=== PATIENT | female | born 1995 | race Caucasian/White ===

== ENCOUNTER 2017-02-07 06:00 | Emergency (ER) | payer OTHER ==
[2017-02-07 06:08] VITALS: BP 120/74
[2017-02-07 06:19] LABS: BILIRUBIN,URINE NEGATIVE (NEGATIVE)
--- NOTE | 2017-02-07 06:30 | ED Physician Documentation ---
PD HPI FEMALE - Stated complaint Stated Complaint: FEMALE - Chief complaint Chief Complaint: Abd Pain - History obtained from History obtained from: Patient, Friend - History of Present Illness Timing - onset: Yesterday Timing - details: Gradual onset, Still present Associated symptoms: Pelvic pain, Dysuria, Urinary frequency. No: Fever Similar symptoms before: Work up / diagnostics, Treatment Recently seen: Not recently seen - Additional information Additional information: Patient is a 22 year old female with no significant past medical history who is presenting to the emergency department for dysuria and increased urinary frequency. Patient denies any nausea, vomiting, fever or chills Review of Systems Constitutional: denies: Fever, Chills Eyes: reports: Reviewed and negative Ears: reports: Reviewed and negative Nose: reports: Reviewed and negative Throat: reports: Reviewed and negative Cardiac: reports: Reviewed and negative Respiratory: reports: Reviewed and negative GI: reports: Abdominal Pain, Nausea. denies: Vomiting, Constipation, Diarrhea : reports: Dysuria, Frequency, Hematuria. denies: Discharge, Vaginal bleeding Skin: denies: Rash, Lesions Neurologic: reports: Reviewed and negative Psychiatric: reports: Reviewed and negative Immunocompromised: denies: Immunocompromised PD PAST MEDICAL HISTORY - Past Medical History Past Medical History: Yes : Other Other Past Medical History: UTI - Past Surgical History Past Surgical History: No - Present Medications Home Medications: Ambulatory Orders Medication Instructions Recorded Confirmed Fluconazole [Diflucan] 100 mg PO DAILY #1 tablet 02/07/17 Ondansetron Odt [Zofran] 4 mg TL Q6H PRN #14 tablet 02/07/17 Phenazopyridine HCl [Pyridium] 200 mg PO TID PRN #6 tablet 02/07/17 Sulfamethox/Trimeth 800/160 1 each PO BID #10 tablet 02/07/17 [Bactrim Ds 800/160] - Allergies Allergies/Adverse Reactions: Allergies Allergy/AdvReac Type Severity Reaction Status Date / Time No Known Drug Allergies Allergy Verified 02/07/17 06:05 - Social History Does the pt smoke?: No Smoking Status: Never smoker Does the pt drink ETOH?: No Does the pt have substance abuse?: No - Immunizations Immunizations are current?: Yes - POLST Patient has POLST: No PD ED PE NORMAL - Vitals Vital signs reviewed: Yes - General General: Alert and oriented X 3, Well developed/nourished - HEENT HEENT: Atraumatic, PERRL - Neck Neck: Supple, no meningeal sign - Cardiac Cardiac: RRR - Respiratory Respiratory: No respiratory distress - Abdomen Abdomen: Non distended - Female Female : Pt declined - Derm Derm: Normal color, Warm and dry, No rash - Extremities Extremities: No deformity, No edema - Neuro Neuro: Alert and oriented X 3, No motor deficit, No sensory deficit, Normal speech Results - Vitals Vitals: Vital Signs - 24 hr 02/07/17 06:06 Temperature 36.4 C L Heart Rate 74 Respiratory 16 Rate Blood Pressure 120/74 O2 Saturation 100 Oxygen O2 Source Room air - Labs Labs: Laboratory Tests 02/07/17 02/07/17 06:12 06:13 Urine Color ORANGE Urine Clarity CLEAR Urine pH 6.0 Ur Specific [place] <=1.005 <=1.005 Urine Protein TRACE Urine Glucose (UA) NEGATIVE Urine Ketones NEGATIVE Urine Occult Blood Urine Nitrite Urine Bilirubin NEGATIVE Urine Urobilinogen 0.2 (NORMAL) Ur Leukocyte Esterase MODERATE H Urine RBC 0-5 Urine WBC 11-25 H Ur Squamous Epith Cells NONE SEEN Urine Bacteria None Seen Ur Microscopic Review INDICATED Urine Culture Comments INDICATED Urine HCG, Qual NEGATIVE PD MEDICAL DECISION MAKING - ED course Complexity details: reviewed old records, reviewed results, re-evaluated patient , considered differential, d/w patient, d/w family ED course: Patient was seen and examined at bedside. Urine was collected and sent. diagnostically and clinically patient had a urinary tract infection but no signs of pyelonephritis. Patient was treated with bactrim, pyridium and zofran. Prescriptions were written. Patient required no further work up and was stable for discharge with outpatient follow up. Departure - Departure Disposition: 01 Home, Self Care Clinical Impression: Urinary tract infection Condition: Good Instructions: ED UTI Cystitis Female Follow-Up: primary,care provider [Other] - Within 3 Days (if symptoms dont improve) Prescriptions: Fluconazole [Diflucan] 100 mg PO DAILY #1 tablet Ondansetron Odt [Zofran] 4 mg TL Q6H PRN #14 tablet PRN Reason: Nausea / Vomiting Phenazopyridine HCl [Pyridium] 200 mg PO TID PRN #6 tablet PRN Reason: dysuria Sulfamethox/Trimeth 800/160 [Bactrim Ds 800/160] 1 each PO BID #10 tablet Comments: Your symptoms are being caused by a urinary tract infection. You had your first dose of antibiotics today and will need to be on them the next five days. You should make sure you stay well hydrated and take motrin, tylenol and pyridium for pain. You should follow up with your pmd if your symptoms persist for more than the next few days. You will be called if your bacteria is no susceptible to the antibiotic given. You may return to the emergency department at any time for new, worsening or uncontrollable symptoms. Forms: Activity restrictions
[2017-02-07 06:31] LABS: UA w/ MICROSCOPIC CHARGE YES
[2017-02-07 06:31] LABS: HCG UR QUAL NEGATIVE
[2017-02-07 06:37] LABS: UR CULTURE IF IND INDICATED
[2017-02-07] MEDS ORDERED: ONDANSETRON ODT 4 MG TABLET TL STA (06:38)
[2017-02-07] MEDS ORDERED: SULFAMETH/TRIMETH DS 800/160 MG TABLET PO STA (06:38)
[2017-02-07] MEDS ORDERED: PHENAZOPYRIDINE 100 MG TABLET PO STA (06:38)
[2017-02-07] MEDS ORDERED: SULFAMETH/TRIMETH DS 800/160 MG TABLET PO ONE (06:46)
[2017-02-07] MEDS ORDERED: PHENAZOPYRIDINE 100 MG TABLET PO ONE (06:47)
[2017-02-07] MEDS ORDERED: ONDANSETRON ODT 4 MG TABLET ONE (06:47)
== END 2017-02-07 06:52 | disposition home or self-care (01) ==
LOC: ED 06:00
DX: N39.0 Urinary tract infection, site not specified (principal); Z87.440 Personal history of urinary (tract) infections
CPT/HCPCS: 81001; 81025; 87086; 87181; 99283; 99284; A9270; Q0162; 81003

== ENCOUNTER 2019-03-06 09:00 | Outpatient (CLI) | payer OTHER | END 2019-03-06 23:59 | disposition home or self-care (01) | LOC: LAB.R 09:00 | PROVIDERS: ATTEND Nurse Practitioner Obstetrics & Gynecology | DX: O60.00 Preterm labor without delivery, unspecified trimester (principal); Z3A.00 Weeks of gestation of pregnancy not specified | CPT/HCPCS: 82731 ==

== ENCOUNTER 2019-03-18 11:34 | Outpatient (CLI) | payer OTHER ==
--- NOTE | 2019-03-19 00:45 | Ultrasound Report ---
Reason: LABOR WITHOUT DELIVERY Procedure Date: 03/18/2019 Accession Number: [id number] / [id number] Procedure: US - OB Limited CPT Code: Final Report FULL RESULT: EXAM: LIMITED OBSTETRICAL ULTRASOUND EXAM DATE: 03/18/2019 11:42 AM. CLINICAL HISTORY: LABOR WITHOUT DELIVERY. Transvaginal cervical length measurement. COMPARISON: None. TECHNIQUE: Real-time sonographic evaluation of the fetus performed by the prefabricator. Multiple front office representative static images were saved for review. Additional transvaginal imaging to more accurately evaluate cervical length. DATING: Established EGA 33 weeks 6 days with REINA 04/30/2019. GENERAL EVALUATION Amor . Cardiac activity: 152 bpm. Presentation: Cephalic. Placenta: Anterior position. Amniotic fluid: Normal. ROBINSON 15.1 cm. MVP 4.4 cm. ANATOMY Not assessed on limited exam. MATERNAL STRUCTURES Cervix is long and closed. Cervix measures 4.9 cm in length transvaginally. IMPRESSION: 1. Amor live intrauterine with gestational age 33 weeks 6 days based on established REINA. 2. Cervix is long and closed, measuring 4.9 cm. 3. Amniotic fluid index 15.1 cm, with MVP 4.4 cm. RADIA
== END 2019-03-18 11:35 | disposition home or self-care (01) ==
LOC: DI 11:34
PROVIDERS: ATTEND Nurse Practitioner Obstetrics & Gynecology
DX: O60.03 Preterm labor without delivery, third trimester (principal); Z3A.33 33 weeks gestation of pregnancy
CPT/HCPCS: 76815

== ENCOUNTER 2019-04-13 08:00 | Outpatient (CLI) | payer OTHER ==
[2019-04-13 22:32] LABS: TRICHOMONAS VAGINALIS DNA NEGATIVE (NEGATIVE)
== END 2019-04-13 23:59 | disposition home or self-care (01) ==
LOC: LAB.R 08:00
PROVIDERS: ATTEND Obstetrics & Gynecology
DX: Z36.85 Encounter for antenatal screening for Streptococcus B (principal)
CPT/HCPCS: 87491; 87591; 87661; 87797

== ENCOUNTER 2019-05-01 06:28 | Inpatient (IN) | payer OTHER ==
[2019-05-01] MEDS ORDERED: AMPICILLIN 2 GM in SODIUM CHLORIDE 0.9% MINIBAG 100 ML IV ONE (08:54)
[2019-05-01] MEDS ORDERED: ONDANSETRON 4 MG/2 ML VIAL IVP PRN (08:54)
[2019-05-01] MEDS ORDERED: SODIUM CHLORIDE FLUSH 0.9% 10 ML SYRINGE IVP PRN (08:54)
[2019-05-01] MEDS ORDERED: LACTATED RINGERS 1,000 ML IV SCH (09:00)
[2019-05-01] MEDS ORDERED: LIDOCAINE-MPF 1% 30 ML VIAL ONE (09:32)
[2019-05-01] MEDS ORDERED: OXYTOCIN/DEXTROSE 5 % 30 UNIT/500 ML BAG IV ONE (09:32)
[2019-05-01] MEDS ORDERED: miSOPROStoL 200 MCG TABLET ONE (09:32)
--- NOTE | 2019-05-01 09:43 | HISTORY & PHYSICAL EXAMINATION ---
Admit History - Visit Reason Visit Reason: Contractions - : 2 Parity: 1 Premature: 0 Ectopic: 0 : 0 Care: positive: [facility] Risk/History: positive: None Complications This : positive: None Smoking Status: Never smoker - Mother's Labs Mother's Blood Type: positive: O Mother's RH: positive: Positive GBS: positive: Group B Strep Positive Rubella Status: positive: Immune Meds/Allgy - Home Medications Home Medications: Ambulatory Orders Medication Instructions Recorded Confirmed Fluconazole [Diflucan] 100 mg PO DAILY #1 tablet 02/07/17 Ondansetron Odt [Zofran] 4 mg TL Q6H PRN #14 tablet 02/07/17 Phenazopyridine HCl [Pyridium] 200 mg PO TID PRN #6 tablet 02/07/17 Sulfamethox/Trimeth 800/160 1 each PO BID #10 tablet 02/07/17 [Bactrim Ds 800/160] - Allergies Allergies/Adverse Reactions: Allergies Allergy/AdvReac Type Severity Reaction Status Date / Time No Known Drug Allergies Allergy Verified 02/07/17 06:05 Review of Systems - Constitutional Constitutional: denies: Fatigue, Fever, Chills, Malaise - Eyes Eyes: denies: Blurred vision, Spots in vision, Dipolpia - Cardiovascular Cariovascular: denies: Irregular heart rate, Chest pain, Edema - Respiratory Respiratory: denies: SOB at rest - Gastrointestinal Gastrointestinal: denies: Change in bowel habits - Integumentary Integumentary: denies: Rash, Pruritis - Neurological Neurological: denies: Headache Physical - Abdominal Exam Vital Signs: Temp Pulse Resp BP Pulse Ox 36.5 C 78 20 113/59 L 100 05/01/19 06:50 05/01/19 06:50 05/01/19 06:50 05/01/19 06:50 05/01/19 06:50 Contraction Frequency (min/apart): 4-9 Contraction Intensity: positive: Moderate to strong Uterine Resting Tone: positive: Soft - Monitoring Heart Rate Baseline: 140 Strip Review: positive: Category I - Presentation Presentation: positive: Vertex - Vaginal Exam Membranes: positive: Membranes intact Dilation (in cm): 5 Effacement (%): 60 Station: positive: -3 Cervical Position: positive: Posterior - Speculum Exam Speculum Exam Performed: positive: No Plan for Labor - Plan For Labor I expect patient to be DC'd or transferred within 96 hours.: Yes Plan for Labor: HPI: Yousif is a 24yo @ 40.1wks gestation by LMP dating c/w initial ultrasound who presents to [facility] at approximately 0700 on 05/01/2019 with c/o contractions which have increased in intensity since 0400 this morning. She denies vaginal bleeding or leakage of fluid and reports +FM. She has been a patient of [facility] since 32wks gestation at which time she transferred care from [facility]. She had received regular care at [facility] previously and her has been complicated only by several weeks of prodromal labor in addition to her GBS positive status. She desires a minimally interventive labor and delivery and she was admitted to [facility] for expectant management. Dating criteria: REINA by LMP 04/27/2019 Initial ultrasound REINA 04/28/2019 Ovulation predictor dating REINA 04/30/2019 Serial exams -agree OB Hx: G1: 01/20/2018; 40wks gestation; ; unmedicated. Male; 6lbs 8oz G2: Current Medications: daily probiotic; PNV Allergies: Gluten (moderate) PMHx: unremarkable Surgical Hx: none Social Hx: Never smoker, no ETOH of IVDA. 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 FAS: 12/16/2018 WNL. Anterior placenta, no previa. 3VC. Size c/w dating Immunizations: TDAP 03/06/2019 Physical Exam: normocephalic, atraumatic Heart RRR w/o M/G/R Lungs CTAB Abdomen gravid, soft, nontender EFW 3000g SVE 5/60/-3, vertex, posterior, intact membranes Contractions palpate moderate to strong every 4-9 minutes with soft resting tone FHR baseline 140s, moderate variability, + accels, no decels Bilateral LE's no edema Mood is good Assessment: 24yo @ 40.1wks gestation by LMP c/w 11wk U/S Early labor GBS positive Plan: Admit for expectant management Initiate ampicillin per protocol for GBS prophylaxis Encouraged ambulation and position changes Caesar ARMSTRONG Anticipate
[2019-05-01 09:49] LABS: BASOPHILS # (AUTO) 0.1 10^3/uL (0.0-0.1); BASOPHILS % (AUTO) 0.5 %; EOSINOPHILS # (AUTO) 0.1 10^3/uL (0.0-0.7); EOSINOPHILS % (AUTO) 1.2 %; LYMPHOCYTES # (AUTO) 1.7 10^3/uL (1.5-3.5); LYMPHOCYTES % (AUTO) 15.8 %; MEAN CORPUSCULAR HEMOGLOBIN 32.4 pg (27.0-31.0); MEAN CORPUSCULAR HGB CONC 35.6 g/dL (32.0-36.0); MEAN CORPUSCULAR VOLUME 91.1 fL (81.0-99.0); MEAN PLATELET VOLUME 12.6 fL (7.9-10.8); MONOCYTES # (AUTO) 0.7 10^3/uL (0.0-1.0); MONOCYTES % (AUTO) 6.2 %; NEUTROPHILS # (AUTO) 8.2 10^3/uL (1.5-6.6); NEUTROPHILS % (AUTO) 75.4 %; PLT - PLATELET COUNT 133 10^3/uL (130-450); RED CELL DISTRIBUTION WIDTH 12.6 % (12.0-15.0); WHITE BLOOD COUNT 10.9 x10^3/uL (4.8-10.8)
--- NOTE | 2019-05-01 12:04 | PROVIDER PROGRESS NOTE ---
Labor Progress Note - Uterine Monitoring Uterine Monitoring Mode: positive: External toco Contraction Frequency (min/apart): 4-8 Contraction Intensity: positive: Moderate to strong Uterine Resting Tone: positive: Soft - Monitoring Monitor Mode: positive: Doppler/auscultation Heart Rate Baseline: 140 Heart Rate Variability: positive: Moderate (6-25 bmp) Accelerations: positive: Present, 15x15 Decelerations: positive: None Strip Review: positive: Category I - Labor Progress Note Labor Progress Note/Additional Text: S: Bouncing on the exercise ball at the bedside and breathing through contractio ns. She desires a minimally interventive labor and delivery and is appreciated of how things have gone thus far. She does feel things are very different this time than with her first, likely due to not receiving pitocin for induction. Wanting some reassurance about moving around vs laying down as she feels when she is laying down her contractions seems stronger than when she is up moving around and we reviewed this. Her is supportive at the bedside and initiating shoulder/back massage between contractions. O: SVE deferred at this time. Membranes intact. Contractions palpate moderate to strong every 4-6 minutes with soft resting tone. FHR baseline 140s, moderate variability, + accels, no decels A: 24yo @ 40.1wks gestation GBS positive - s/p loading dose of antibiotics per protocol Early labor P: Intermittent FHR auscultation Continue IV antibiotics for GBS prophylaxis per protocol Encouraged ambulation and position changes Caesar ARMSTRONG Defer SVE until pt requests or feeling urge to push Reviewed plan of care with pt, , and labor RN at the bedside who are all in agreement with plan and deny further questions or concerns at this time. Anticipate .
[2019-05-01] MEDS: AMPICILLIN 1 GM in SODIUM CHLORIDE 0.9% MINIBAG 100 ML IV SCH ×2 (14:00→18:08)
[2019-05-01] MEDS: SODIUM CHLORIDE FLUSH 0.9% 10 ML SYRINGE IVP SCH ×2 (14:06→18:09)
--- NOTE | 2019-05-01 16:14 | PROVIDER PROGRESS NOTE ---
Labor Progress Note - Uterine Monitoring Uterine Monitoring Mode: positive: Palpation Contraction Frequency (min/apart): 6-8 Contraction Intensity: positive: Moderate Uterine Resting Tone: positive: Soft - Monitoring Monitor Mode: positive: External ultrasound Heart Rate Baseline: 140 Heart Rate Variability: positive: Moderate (6-25 bmp) Accelerations: positive: Present, 10x10 (=/32 wks) Decelerations: positive: None Strip Review: positive: Category I - Vaginal Exam Dilation (in cm): 6 Effacement (%): 75 Station: -2 Cervical Position: Midposition - Labor Progress Note Labor Progress Note/Additional Text: S: Feeling slightly discouraged because she feels her contractions have d ecreased in both frequency and intensity at this point. She requests something to move the process forward. Her is supportive at the bedside. O: Contractions palpate moderate every 6-8 minutes with soft resting tone FHR baseline 140s with intermittent auscultation SVE 6/75/-2, vertex, mid-anterior position, soft AROM occurred at 1600 and was noted to be a moderate amount of clear fluid A: 24yo @ 40.1wks gestation Early labor GBS positive -receiving GBS prophylaxis per protocol P: Continue expectant management Intermittent heart rate auscultation Continue GBS prophylaxis per protocol Discussed nipple stimulation to augment Reviewed plan of care with pt, , and labor RN at the bedside who are all in agreement with above plan and deny further questions or concerns at this time. Anticipate .
[2019-05-01] MEDS ORDERED: BUFFERED LIDOCAINE 10 ML SYRINGE SUBQ STA (20:53)
[2019-05-01] MEDS ORDERED: HYDROCORTISONE 1% CREAM 28 GM TUBE PR PRN (21:09)
[2019-05-01] MEDS ORDERED: WITCH HAZEL/GLYCERIN 1 PAD TOP PRN (21:09)
--- NOTE | 2019-05-01 21:22 | DELIVERY NOTE ---
Delivery Note - Labor Labor: positive: Spontaneous, Augmented by ARM - Infant Delivery Method Delivery Method: positive: Spontaneous vaginal delivery - Presentation Presentation: positive: Vertex, PRINCESS - left occiput anterior - Nuchal Cord Nuchal Cord: positive: None - Episiotomy Type Episiotomy Type: positive: None - Laceration Laceration: positive: 1st degree, Vaginal - Suture Suture Type: positive: Vicryl Suture Size: positive: 4-0 - Delivery Outcome Delivery Outcome: positive: Livebirth - [place] : positive: Placed in direct skin contact with mother, Stimulated, Warmed, [place] used sex: positive: Male - Cord Cord: positive: 3 vessels - Placenta Placenta: positive: Intact, Spontaneous - Estimated Blood Loss Estimated Blood Loss (in cc): 150 - Post Delivery Events Post Delivery Events: positive: No post delivery events - Delivery Comments (Free Text/Narrative) Delivery Comments (Free Text/Narrative): Labor: This 24yo @ 40.1wks gestation by LMP c/w 11wk U/S presented to [facility] in early labor on 05/01/2019 at approximately 0700. Cervix was 2/60/-3, vertex with intact membranes. She was allowed to ambulate and repeat SVE 2 hours later was 5/60/-3, vertex with intact membranes. The patient was admitted for expectant management. FHR pattern demonstrated Category I pattern throughout labor. Normal labor course. AROM occurred @ 1600 and was noted to be a moderate amount of clear fluid. Patient progressed to anterior lip with spontaneous urge to push at 2005. : She progressed to spontaneously deliver a viable male infant at 2028 on 05/01/2019. No nuchal cord. The was placed on maternal abdomen, stimulated, dried, and placed skin to skin. 's were 9/9 at 1 and 5 min respectively. The umbilical cord was allowed to stop pulsating at which time it was doubly clamped by CNM and cut by FOB. Cord blood was obtained. 3VC. Pt declined active management of the third stage with pitocin. Placenta delivered spontaneously and intact at 2037. EBL 150mL. Fourth stage. Uterine fundus firm and there is no excessive bleeding. The perineum, vagina, and cervix were inspected and found to have a minor first degree vaginal laceration at introitus which was repaired using 4-0 vicryl on an SH needle in standard fashion, under sterile conditions. In addition there was noted to be a minor first degree left labial laceration which was hemostatic and left unrepaired. Vaginal examination following the repair was done. Tissues well approximated. initiated. Family bonding well. Both mother and baby were left in stable condition.
[2019-05-01] MEDS: IBUPROFEN 800 MG TABLET PO SCH (21:28)
[2019-05-01] MEDS ORDERED: ACETAMINOPHEN 500 MG TABLET PO SCH (22:00)
[2019-05-02] MEDS: ONDANSETRON ODT 4 MG TABLET TL PRN ×5 (00:15→17:11)
[2019-05-02] MEDS ORDERED: DOCUSATE SODIUM 100 MG CAPSULE PO SCH (09:00)
[2019-05-02] MEDS: IBUPROFEN 800 MG TABLET PO SCH ×2 (11:33→17:10)
--- NOTE | 2019-05-02 12:51 | PROVIDER PROGRESS NOTE ---
Subjective - Subjective Subjective: FINAL PROGRESS NOTE: S: Bonding well with baby. without difficulty. Pain well controlled with oral medications. Bleeding decreased and is light. Strongly desires to go home later this evening. O: Heart RRR w/o M/G/R, lungs CTAB, abdomen soft and nontender with fundus firm at U-1, bilateral LE's no edema. A: 24yo -->P2 PPD#1 s/p TSVD of viable male P: Reviewed pp self care and warning s/sx. Advised continuation of ibuprofen and tylenol PRN pain Advised continuation of PNV while Discussed pp contraception - considering minipill vs natural family plannning - they do desire more children in the future but would like to space further apart. Pt verbalized understanding and agrees to above plan. She denies further questions or concerns at this time. Return in 3 weeks for routine pp visit or sooner PRN. Objective - Vital Signs/Intake & Output Vital Signs: Vital Signs x48h Temp Pulse Resp BP Pulse Ox 05/02/19 12:24 36.7 C 72 16 119/63 98 05/02/19 09:40 36.9 C 75 16 109/70 99 Intake & Output: Intake & Output 04/29/19 04/30/19 05/01/19 05/02/19 23:59 23:59 23:59 23:59 Intake Total 1977.5 300 Output Total 250 700 Balance 1727.5 -400 - Lab Results Fish Bones: 05/01/19 09:25
--- NOTE | 2019-05-02 12:51 | Discharge Plan ---
Discharge Plan Problem Reviewed?: Yes Disposition: Home, Self Care Condition: Good Diet: Regular Activity Restrictions: No Restrictions Shower Restrictions: No Driving Restrictions: No Weight Bearing: Full Weight No Smoking: If you smoke, Please STOP! Call for help. Follow-up with: Amber Neely CNM, ARNP [Provider Admit Priv/Credential] -
[2019-05-02 17:24] VITALS: BP 115/79
--- NOTE | 2019-05-02 17:41 | DISCHARGE SUMMARY ---
Physician: MACKENZIE Medina DATE OF ADMISSION: 05/01/2019 DATE OF DISCHARGE: 05/02/2019 DIAGNOSES ON ADMISSION 1. A 24-year-old G2, P1-0-0-1, at 40.1 weeks' gestation. 2. Group B streptococcus positive. 3. Early labor. DIAGNOSES ON DISCHARGE 1. A 24-year-old G2, P2-0-0-2, status post spontaneous vaginal delivery on 05/01/2019. 2. . 3. Normal recovery. HISTORY OF PRESENT ILLNESS: She is a patient of [facility] who presented on 020 with complaints of contractions. Her cervix was noted to be 2 cm dilated, 60% effaced, -3 statio n, vertex position with intact membranes. Repeat SVE 2 hours later was noted to be 5 cm dilated, 60% effaced, -3 station, vertex with intact membranes. Patient was admitted for expectant management. She received GBS per protocol for prophylaxis. Artificial rupture of membranes occurred at 1600 and was noted to be a moderate amount of clear fluid. Patient progressed to spontaneously deliver a viab le male infant at 2028 on 05/01/2019. Apgars were 9 and 9 at 1 and 5 minutes, respectively. EBL was 150 mL. The perineum, vagina and cervix were inspected and found to have a minor first-degree vagin al laceration at the introitus, which was repaired using a 4-0 Vicryl on an SH needle in standard fas hion under sterile conditions. She has been doing well in her course. She is ambulating and tolerating a regular diet. She is urinating without difficulty and her lochia is normal. Her pain is well controlled with her o ral medications. She will be discharged home today on day #1 with instructions to continu e her vitamin while , and to take ibuprofen and Tylenol [id number] as nee ded for pain management. She intends to followup with myself at [facility] in [address] [place] [address] for routine visit or sooner if needed. She has been given precautions to call if she h as any worsening fevers, chills, abdominal pain, increased bleeding or foul-smelling vaginal lochia. TD: 05/02/2019 12:58
--- NOTE | 2019-05-02 22:02 | Labor Flowsheet ---
Labor Flowsheet Datetime Report Generated by CPN: 05/02/2019 22:02 Datetime: 05/02/2019 17:16 VITAL SIGNS NBP Sys/Mirtha/Mean (mmHg): 115 : 79 : 87 Pulse: 69 LaborFlag: Labor Datetime: 05/02/2019 12:24 SpO2 (%): 99 Datetime: 05/01/2019 20:35 Membranes Ruptured Date/Time: 05/01/2019 16:06 Datetime: 05/01/2019 20:28 STAGE 2 Pushing: Urge to Push Pushing Position: Pushing with Contractions; Pushing Right Side Pushing Progress: with Pushing Datetime: 05/01/2019 20:26 UTERINE ACTIVITY Monitor Mode: Palpation Frequency (min): 2 Quality: Strong Resting Tone (Palpate): Relaxed ASSESSMENT A Monitor Mode: Telemetry FHR Baseline Rate : 120 Variability: Moderate 6-25 bpm Decelerations: None Category: Category I Datetime: 05/01/2019 20:21 Duration (sec): Datetime: 05/01/2019 20:15 FHR Baseline Changes: Bradycardia Comments: start continous EFM, pt pushing Datetime: 05/01/2019 20:14 Stage 2 Comments: Hands and knees Datetime: 05/01/2019 20:06 VAGINAL EXAM Dilatation (cm): 10.0 Effacement (%): 100 Station: 0 Exam by: A Vanesa CNM Datetime: 05/01/2019 20:05 Provider Notified (Name): AKyree Neely CNM Communication Comments: In room reviewed strip, ok to take off EFM Datetime: 05/01/2019 20:00 Pattern: Normal: <= 5 Contractions in 10 Minutes Accelerations: 15X15 Datetime: 05/01/2019 19:06 Patient Position/Activity: Hands-Knees Datetime: 05/01/2019 18:44 PATIENT CARE IV/Blood Work: IV Saline Locked Datetime: 05/01/2019 18:17 Vaginal Bleeding: Normal Show Cervix, Consistency: Soft Cervix, Position: Anterior Datetime: 05/01/2019 18:15 MEDICATIONS Antibiotics: Ampicillin IV 1 Gm Datetime: 05/01/2019 18:05 Stage of : Labor Datetime: 05/01/2019 17:35 Respirations: 16 Temperature (C): 36.6 Datetime: 05/01/2019 17:00 Oxygen Method: Room Air Datetime: 05/01/2019 16:25 Monitor Interventions for UA: [place] Adjusted Datetime: 05/01/2019 16:06 Membrane Status: Ruptured Membranes Rupture Method: Artificial Amniotic Fluid Color: Clear Amniotic Fluid Amount: Small Amniotic Fluid Odor: Normal Membrane Comments: [place] ruptured by Amber Darr CNM, monitor started per CNM Datetime: 05/01/2019 15:00 Actions for Decelerations: no audible deceleration Datetime: 05/01/2019 13:00 Comfort Measures: pt trying to rest Datetime: 05/01/2019 10:20 Contraction Comments: [place] not capturing contractions while side lying. Continues to have contract ions about every 5-6 minutes while lying down. COMMUNICATION Communication: Report Given to @ Suzan RN Datetime: 05/01/2019 09:55 I/O Interventions: Up to BR
== END 2019-05-02 21:30 | disposition home or self-care (01) | DRG 807 ==
LOC: WFO 06:28 → FBP 06:39 → WFO 08:53 → FBP 08:54
PROVIDERS: ADMIT Nurse Practitioner Obstetrics & Gynecology; ATTEND Nurse Practitioner Obstetrics & Gynecology
PROC: 10E0XZZ Delivery of Products of Conception, External Approach (ICD-10-PCS; principal; 2019-05-01)
PROC: 10907ZC Drainage of Amniotic Fluid, Therapeutic from Products of Conception, Via Natural or Artificial Opening (ICD-10-PCS; 2019-05-01)
PROC: 0HQ9XZZ Repair Perineum Skin, External Approach (ICD-10-PCS; 2019-05-01)
DX: O99.824 Streptococcus B carrier state complicating childbirth (principal); Z37.0 Single live birth; O70.0 First degree perineal laceration during delivery; Z3A.40 40 weeks gestation of pregnancy
CPT/HCPCS: 85025; 99213; A9270; J7120; Q0162